=== PATIENT | male | born 1995 | race Caucasian/White ===

== ENCOUNTER 2021-08-03 16:35 | Outpatient (CLI) | payer OTHER, SELFPAY ==
--- NOTE | 2021-08-03 16:44 | ECG_ITS ---
Measurements Intervals [place] Rate: 72 P: 22 DC: 155 QRS: 14 QRSD: 89 T: 24 QT: 373 QTc: 408 Interpretive Statements SINUS RHYTHM NORMAL ECG Electronically Signed On 08-03-2021 20:07:54 [employer]DER WORKER by Matthew Kang D.O.
[2021-08-03 17:47] LABS: Basophils Absolute Auto 0.07 K/mm3 (0.00-0.10); Basophils Percent Auto 0.8 % (0.0-1.0); Eosinophils Absolute Auto 0.37 K/mm3 (0.02-0.50); Eosinophils Percent Auto 4.4 % (1.0-6.0); Hematocrit 46.2 % (40.0-54.0); Hemoglobin 16.1 g/dL (14.0-18.0); Immature Granulocyte Absolute 0.03 K/mm3 (0.00-0.00); Immature Granulocyte Percent A 0.4 % (0.0-0.0); Lymphocytes Absolute Auto 2.64 K/mm3 (1.10-4.50); Lymphocytes Percent Auto 31.7 % (18.0-42.0); Mean Corpuscular HGB Conc 34.8 g/dL (32.0-36.0); Mean Corpuscular Volume 91.8 fL (78.0-102.0); Mean Platelet Volume 9.9 fl (8.7-11.0); Monocytes Absolute Auto 0.79 K/mm3 (0.10-0.90); Monocytes Percent Auto 9.5 % (2.0-11.0); Neutrophils Absolute Auto 4.4 K/mm3 (1.7-7.2); Neutrophils Percent Auto 53.2 % (50.0-70.0); Platelet Count Result 366 K/mm3 (150-420); Red Blood Count 5.03 M/mm3 (4.70-6.10); Red Cell Distribution Width 11.9 % (11.6-14.4); White Blood Count 8.3 K/mm3 (4.8-10.8)
[2021-08-03 18:32] LABS: Alanine Aminotransferase 95 U/L (16-63); Albumin Level 4.4 g/dL (3.4-5.0); Alkaline Phosphatase 98 U/L (46-116); Anion Gap 10 mmol/L (8-16); Aspartate Amino Transferase 37 U/L (15-37); Bilirubin,Total 0.2 mg/dL (0.00-1.00); Blood Urea Nitrogen 21 mg/dL (7-18); Calcium 9.1 mg/dL (8.5-10.1); Carbon Dioxide 28 mmol/L (21-32); Chloride 101 mmol/L (98-108); Cholesterol 212 mg/dL (0-200); Estimated Glomerular Filt Rate > 60; Free T4 Free Thyroxine 0.73 ng/dL (0.76-1.46); Glucose 86 mg/dL (70-99); HDL Direct 28 mg/dL (40-60); LDL Cholesterol Calculated 140 mg/dL (<130); Magnesium 2.4 mg/dL (1.8-2.4); Osmolality Calculated 290 mOsm/kg (285-295); Potassium 3.8 mmol/L (3.5-5.1); Sodium 139 mmol/L (136-145); Thyroid Stimulating Hormone 2.46 uIU/mL (0.36-3.74); Triglycerides 221 mg/dL (0-150); Vitamin B12 742 pg/mL (193-986)
[2021-08-07 14:15] LABS: Testosterone Free 47.5 pg/mL (35.0-155.0); Testosterone Total 295 ng/dL (250-1100)
== END 2021-08-03 16:36 | disposition home or self-care (01) ==
LOC: CHSLAB 16:44
PROVIDERS: PCP Nurse Practitioner Family; Visit Provider Nurse Practitioner Family
DX: R00.2 Palpitations (principal); R53.83 Other fatigue; Z00.00 Encounter for general adult medical examination without abnormal findings
CPT/HCPCS: 36415; 80053; 80061; 82607; 83735; 84402; 84403; 84439; 84443; 85025; 93005

== ENCOUNTER 2021-08-09 08:35 | Outpatient (CLI) | payer OTHER, SELFPAY ==
--- NOTE | 2021-08-11 12:57 | WPDHOLTEREM ---
Holter/Event Monitor Holter/Event Monitor Date of procedure: 08/09/21 Holter/Event Procedure: 48 Hr Holter Monitor Indications: Palpitations Conclusion: 1. 48 hour holter monitor on 08/09/21. 2. Underlying rhythm is sinus rhythm. HR range 45-164 bpm; average HR 79 bpm. 3. There are 7 premature supraventricular complexes and 2 supraventricular couplets. No supraventricular tachycardia. 4. There are 86 premature ventricular complexes. No ventricular tachycardia. 5. No sinoatrial or atrioventricular blocks. No significant pauses greater than 2 seconds. 6. No symptoms available for correlation.
== END 2021-08-09 08:36 | disposition home or self-care (01) ==
LOC: CHSCARD 08:36
PROVIDERS: PCP Nurse Practitioner Family; Visit Provider Nurse Practitioner Family
DX: R00.2 Palpitations (principal)
CPT/HCPCS: 93225; 93226

== ENCOUNTER 2021-09-07 09:44 | Emergency (ER) | payer OTHER, SELFPAY ==
[2021-09-07] VITALS (13 sets, daily range): BP systolic 112–141; BP diastolic 63–84; PULSE 70–87; RESP 11–18; TEMP 36.9; O2SAT 96–99
--- NOTE | ~2021-09-07 | XR_ITS ---
EXAMINATION: XR chest 2V DATE: 09/07/2021 10:20 INDICATION: Left-sided chest pain TECHNIQUE: Frontal and lateral views of the chest are obtained COMPARISON: 04/22/2016 FINDINGS: The lungs are free of acute opacities. There is no pleural effusion or pneumothorax. The ca rdiomediastinal silhouette is normal. There are changes of interval plate-screw fixation of the right clavicle. IMPRESSION: 1. No acute cardiopulmonary abnormality. Reviewed, dictated and finalized at location A. [facility]
--- NOTE | 2021-09-07 09:47 | ECG_ITS ---
Measurements Intervals [place] Rate: 81 P: 28 [place]: 140 QRS: 17 QRSD: 85 T: 27 QT: 355 QTc: 413 Interpretive Statements SINUS RHYTHM WITH SINUS ARRHYTHMIA NORMAL ECG Electronically Signed On 09-07-2021 10:26:06 [employer]UG AND ALCOH[employer] COUNSELLOR by Matthew Kang D.O.
--- NOTE | 2021-09-07 10:22 | ED.CHESTPAIN ---
HPI - Chest Pain General Chief Complaint: Chest Pain Stated Complaint: chest pain, lightheadedness Time Seen by Provider: 09/07/21 10:20 Source: patient Mode of arrival: ambulatory Limitations: no limitations History of Present Illness HPI narrative: This is a 25 year old male that presents to the ER for chest pain ongoing for about a month. Reports he has episodes almost daily of sharp left sided chest pains. Sometimes they last only briefly, sometimes it lasts all day. He has been evaluated by his primary for this. Was placed on a Holter monitor without concerning findings. Reports today he had an episode of pain associated with some lightheadedness which prompted him to be seen. The pain is worse with deep breathing. Denies fever, shortness of breath, lower extremity edema, recent travel or surgery. Related Data Allergies Allergy/AdvReac Type Severity Reaction Status Date / Time cefazolin Allergy Intermediate VOMITTING Verified 08/02/21 16:24 clindamycin Allergy Intermediate Dyspnea / Verified 08/02/21 16:24 SOB Penicillins Allergy Intermediate PROJECTILE Verified 08/02/21 16:24 VOMITTING Review of Systems Review of Systems: CONSTITUTIONAL: Denies fever CARDIOVASCULAR: Reports chest pain. Denies palpitations, or edema. RESPIRATORY: Denies cough or dyspnea. 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 HEAD: Normocephalic, atraumatic. EYES: EOMI. NECK: Supple. No adenopathy or masses. No carotid bruits or JVD CHEST: Clear to auscultation. No respiratory distress. No wheezes rales or rhonchi HEART: Regular rate and rhythm. No murmur heard. Normal peripheral pulses. EXTREMITIES: Normal range of motion. No edema. SKIN: Warm, dry, no rash. NEURO: No focal deficits. Alert and oriented x3. PSYCH: Normal mood and affect Course Vital Signs Vital signs: Vital Signs Temperature 98.4 F 09/07/21 09:56 Pulse Rate 76 09/07/21 09:56 Respiratory Rate 18 09/07/21 09:56 Blood Pressure 141/73 H 09/07/21 09:56 Pulse Oximetry 99 09/07/21 09:56 Temperature 98.4 F 09/07/21 09:56 Pulse Rate 70 09/07/21 11:01 Respiratory Rate 15 09/07/21 11:01 Blood Pressure 114/72 09/07/21 11:00 Pulse Oximetry 99 09/07/21 11:01 MDM - Chest Pain MDM Narrative Medical decision making narrative: Patient presents to the emergency department for pain ongoing over the last month. Patient's blood pressure mildly elevated on arrival, this normalized without intervention. CBC and metabolic panel without concerning findings. Lipase is normal. TSH is normal. EKG without concerning ST changes and baseline inferior troponin are negative. Chest x-ray without acute cardiopulmonary abnormality. D-dimer is not elevated. Patient was updated on case findings. Instructed to follow-up with his primary care doctor. His heart score is a 1. He is stable and felt appropriate for further outpatient evaluation. He was given warnings to return to the ER Lab Data Attestation: I reviewed the patient's lab results. Result diagrams: 09/07/21 10:35 09/07/21 10:35 Labs: Lab Results 09/07/21 09/07/21 09/07/21 Range/Units 10:35 10:35 10:35 WBC 5.8 (4.5-10.0) K/mm3 RBC 4.84 (4.6-6.20) M/mm3 Hgb 15.5 (14.0-18.0) g/dL Hct 43.3 (42.0-52.0) % MCV 89.5 (80-100) fl MCH 32.0 (26-34) pg MCH
[2021-09-07 10:54] LABS: Basophils Percent Auto 0.5 % (0.2-1.2); Eosinophils Absolute Auto 0.1 K/mm3 (0-0.3); Eosinophils Percent Auto 2.1 % (0-4.4); Hematocrit 43.3 % (42.0-52.0); Hemoglobin 15.5 g/dL (14.0-18.0); Immature Granulocyte Absolute 0.01 K/mm3 (0.00-0.031); Immature Granulocyte Percent A 0.2 % (0-0.5); Lymphocytes Absolute Auto 1.69 K/mm3 (0.9-3.2); Lymphocytes Percent Auto 29.1 % (18.3-44.2); Mean Corpuscular HGB Conc 35.8 g/dl (32-36); Mean Corpuscular Volume 89.5 fl (80-100); Mean Platelet Volume 9.7 fl (7.4-10.4); Monocytes Absolute Auto 0.4 K/mm3 (0.1-0.6); Monocytes Percent Auto 7.6 % (2.6-8.5); Neutrophils Absolute Auto 3.5 K/mm3 (1.3-6.7); Neutrophils Percent Auto 60.5 % (45.5-73.1); Platelet Count Result 308 k/mm3 (150-375); Red Blood Count 4.84 M/mm3 (4.6-6.20); Red Cell Distribution Width 11.9 % (11.5-14.5); White Blood Count 5.8 K/mm3 (4.5-10.0)
[2021-09-07 11:05] LABS: Alanine Aminotransferase 49 U/L (4-50); Albumin Level 4.5 g/dL (3.5-5.1); Alkaline Phosphatase 89 U/L (38-126); Anion Gap 8 mmol/L (8-16); Aspartate Amino Transferase 38 U/L (17-59); Bilirubin,Total 0.6 mg/dL (0.2-1.3); Blood Urea Nitrogen 20 mg/dL (9-20); Calcium 9.7 mg/dL (8.4-10.2); Carbon Dioxide 26 mmol/L (22-30); Chloride 106 mmol/L (98-107); Estimated CRCL calculation 137 ml/min; Estimated Glomerular Filt Rate > 60; Glucose 105 mg/dL (65-110); Lipase 97 U/L (23-300); Potassium 4.3 mmol/L (3.4-5.0); Sodium 140 mmol/L (137-145)
[2021-09-07 11:07] LABS: INR 1.1; Prothrombin Time 13.9 Seconds (11.1-14.7)
[2021-09-07 11:08] LABS: Partial Thromboplastin Time 31.1 SECONDS (22.3-36.8)
[2021-09-07 11:21] LABS: D Dimer < 0.27 ug/mL (<0.48)
[2021-09-07 11:44] LABS: Troponin I < 0.012 ng/mL (0.000-0.034)
[2021-09-07 13:35] LABS: Troponin I < 0.012 ng/mL (0.000-0.034)
== END 2021-09-07 14:19 | disposition home or self-care (01) ==
PROVIDERS: Physician Assistant; Emergency Provider Emergency Medicine
DX: R07.9 Chest pain, unspecified (principal); E78.5 Hyperlipidemia, unspecified
CPT/HCPCS: 36415; 71046; 80053; 83690; 84443; 84484; 85025; 85380; 85610; 85730; 93005; 99284

== ENCOUNTER 2021-09-09 08:09 | Outpatient (CLI) | payer OTHER, SELFPAY ==
[2021-09-09 08:47] LABS: Cholesterol 172 mg/dL (0-200); HDL Direct 32 mg/dL (40-60); LDL Cholesterol Calculated 117 mg/dL (<130); Triglycerides 116 mg/dL (0-150)
[2021-09-13 15:41] LABS: Testosterone Free 81.6 pg/mL (35.0-155.0); Testosterone Total 402 ng/dL (250-1100)
== END 2021-09-09 08:10 | disposition home or self-care (01) ==
LOC: CHSLAB 08:11
PROVIDERS: PCP Nurse Practitioner Family; Visit Provider Nurse Practitioner Family
DX: Z01.83 Encounter for blood typing (principal); E78.2 Mixed hyperlipidemia; R79.89 Other specified abnormal findings of blood chemistry
CPT/HCPCS: 36415; 80061; 84402; 84403; 86850; 86900; 86901

== ENCOUNTER 2021-10-21 14:02 | Emergency (ER) | payer OTHER, SELFPAY ==
[2021-10-21 14:10] VITALS: BP 99/63; PULSE 77; RESP 18; TEMP 36.4; O2SAT 100
--- NOTE | 2021-10-21 14:10 | ED.WOUNDLAC ---
HPI - Wound/Laceration General Chief Complaint: Wound/Laceration Stated Complaint: FINGERNAIL PULLED BACK Time Seen by Provider: 10/21/21 14:10 Source: patient, RN notes reviewed and old records reviewed Mode of arrival: ambulatory Limitations: no limitations History of Present Illness HPI narrative: 25 year old male presents to express care with complaints of exercising at the [facility] today and was doing push ups on a kettle ball and caught his 5th left finger nail on mat about 45 minutes ago. He has laceration noted under the end of the finger nail of his left 5th finger with some bloody drainage noted from site. Patient reports that his tetanus shot is up to date. Patient states that he has some pain to site rates his discomfort as 4/10. No damage noted to nail bed of his left 5th finger Onset (ago): minute(s) (45 minutes ago) Related Data Home Medications Medication Instructions Recorded Confirmed No Home Medications 09/26/21 Allergies Allergy/AdvReac Type Severity Reaction Status Date / Time cefazolin Allergy Intermediate VOMITTING Verified 09/26/21 10:44 clindamycin Allergy Intermediate Dyspnea / Verified 09/26/21 10:44 SOB Penicillins Allergy Intermediate PROJECTILE Verified 09/26/21 10:44 VOMITTING Review of Systems Review of Systems: CONSTITUTIONAL: Denies fever, chills, or sweats. EYES: Denies visual changes, redness, or discharge. ENT: Denies rhinorrhea, congestion, sore throat, or otalgia. CARDIOVASCULAR: Denies chest pain, palpitations, or edema. RESPIRATORY: Denies cough or dyspnea. GASTROINTESTINAL: Denies abdominal pain, nausea, vomiting, or diarrhea. GENITOURINARY: Denies dysuria or hematuria. SKIN: Denies rash or itching positive for tear of skin under nail of left 5th finger MUSCULOSKELETAL: Denies back pain, joint pain, or myalgia. NEUROLOGIC: Denies headache, numbness, or weakness. PSYCHIATRIC: Denies anxiety or depression. 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 There is no relevant family history pertinent to the presenting complaint Exam Narrative: GENERAL: Well-appearing, well-nourished, and in no acute distress. HEAD: Normocephalic, atraumatic. EYES: PERRLA and EOMI. ENT: Nares clear, no rhinorrhea or epistaxis. Mucous membranes moist.TM's normal with good light reflex, throat pink with no abnormality noted. NECK: Supple.no lymphadenopathy CHEST: Clear to auscultation. No respiratory distress. HEART: Regular rate and rhythm. No murmur heard. Normal peripheral pulses. ABDOMEN: Soft, nontender, nondistended, normal active bowel sounds. EXTREMITIES: Normal range of motion. No edema. SKIN: Warm, dry, no rash. .3cm laceration noted under tip of nail of left 5th finger with nail bed intact with no injury noted, bleeding present from laceration site. Patient has adequate sensation, color and mobility of left 5th finger with finger warm and pink, strong left radial pulse. Wound cleansed and irrigated,small strip of Surgicel placed under tip of 5th left nail and gauze and coban dressing applied to 5th left finger. Care instructions reviewed with patient with understanding verbalized. NEURO: No focal deficits. Alert and oriented x3. Course Course Level of Care: Express Care Visit Vital Signs Vital signs: Vital Signs Temperature 36.4 C 10/21/21 14
== END 2021-10-21 15:13 | disposition home or self-care (01) ==
PROVIDERS: Emergency Provider Registered Nurse
DX: S61.217A Laceration without foreign body of left little finger without damage to nail, initial encounter (principal); X58.XXXA Exposure to other specified factors, initial encounter; E78.5 Hyperlipidemia, unspecified
CPT/HCPCS: 99212; G0463

== ENCOUNTER 2021-10-27 01:38 | Emergency (ER) | payer OTHER, SELFPAY ==
--- NOTE | 2021-10-27 01:46 | ED.WOUNDLAC ---
HPI - Wound/Laceration General Chief Complaint: Extremity Problem,Nontraumatic Stated Complaint: Left Pinkey Injury Time Seen by Provider: 10/27/21 01:46 Source: patient History of Present Illness HPI narrative: 26-year-old male presents to the ER with -- he sustained left little finger subungual laceration when he was exercising. The wound was bleeding profusely. He went to an urgent care On 10/21/2021 where they placed a Surgi gel to stop his bleeding. He presents today with pain and redness of his little finger distal phalanx. No discharge. -- He had an extensive tattooing of his right forearm on 10/24/2021. He presents today with redness, tenderness and minimal blistering over certain areas of his right forearm. No fever or chills. No axillary lymphadenopathy. Onset (ago): day(s) ( 6 days) Location: other ( left little finger and right forearm) Extremity Location: Left: hand and Right: forearm Place: home Patient tetanus UTD: No Context: accidental Associated symptoms: none Related Data Allergies Allergy/AdvReac Type Severity Reaction Status Date / Time cefazolin Allergy Intermediate VOMITTING Verified 10/27/21 01:50 clindamycin Allergy Intermediate Dyspnea / Verified 10/27/21 01:50 SOB Penicillins Allergy Intermediate PROJECTILE Verified 10/27/21 01:50 VOMITTING Review of Systems Review of Systems: All systems reviewed & are unremarkable except as noted in HPI and below Constitutional: Constitutional: Reports as per HPI and Reports no additional constitutional complaints Eyes: Eyes: Reports as per HPI and Reports no additional eye complaints ENT: Reports system reviewed and no additional complaints, except as documented Cardiovascular: Cardiovascular: Reports as per HPI and Reports no additional cardiovascular complaints Respiratory: Respiratory: Reports as per HPI and Reports no additional respiratory complaints Gastrointestinal: Gastrointestinal: Reports as per HPI and Reports no additional gastrointestinal complaints Genitourinary: Genitourinary: Reports no additional male genitourinary complaints and Reports as per HPI Musculoskeletal: Musculoskeletal: Reports no additional musculoskeletal complaints and Reports as per HPI Integumentary/Breasts: Comments: redness and tenderness over areas of tattooing on his right forearm. healed laceration under the left little finger nail with surrounding redness and tenderness Neurologic: Reports system reviewed and no additional complaints, except as documented and Reports as per HPI Psychiatric: Psychiatric: Reports no additional psychiatric complaints and Reports as per HPI Endocrine: Endocrine: Reports no additional endocrine complaints and Reports as per HPI Hematologic/Lymphatic: Hematologic/Lymphatic: Reports no additional hematologic/lymphatic complaints and Reports as per HPI Allergic/Immunologic: Allergic/Immunologic: Reports no additional allergic/immunologic complaints and Reports as per HPI [facility] Past Medical History Medical History History of hyperlipidemia Thumb injury Family History Family History Grandparent Diabetes mellitus Mother Hypercholesteremia Social History Social History Smoking status: Never smoker Alcohol intake: never Substance use: never 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
[2021-10-27 01:50] VITALS: BP 140/65; PULSE 81; RESP 81; TEMP 36.4; O2SAT 99
[2021-10-27] MEDS: TETANUS,DIPHTHERIA,AC PERTUSSIS ADULT 0.5 ML (ADACEL) IM (02:22)
[2021-10-27 02:49] VITALS: BP 112/73; PULSE 72; RESP 19; TEMP 36.8; O2SAT 97
== END 2021-10-27 02:51 | disposition home or self-care (01) ==
PROVIDERS: Emergency Provider Internal Medicine Critical Care Medicine; PCP Nurse Practitioner Family
DX: L03.012 Cellulitis of left finger (principal)
CPT/HCPCS: 90715; 96372; 99283; A9270

== ENCOUNTER 2021-12-02 11:19 | Outpatient (CLI) | payer OTHER, SELFPAY ==
--- NOTE | ~2021-12-02 | XR_ITS ---
XR chest 2V DATE: 12/02/2021 11:49 INDICATION: Shortness of breath. TECHNIQUE: PA and lateral views COMPARISON: September 07, 2021 2 view chest FINDINGS: Normal heart size. No hilar or mediastinal enlargement. No pulmonary infiltrate or consolid ation, pleural effusion or pulmonary vascular congestion or pneumothorax. Plates and screws along the right clavicle are again noted. IMPRESSION: No active cardiopulmonary disease Reviewed, dictated and finalized at location B.
== END 2021-12-02 11:20 | disposition home or self-care (01) ==
LOC: CHSLAB 11:24
PROVIDERS: PCP Nurse Practitioner Family; Visit Provider Nurse Practitioner Family
DX: R06.02 Shortness of breath (principal); K52.9 Noninfective gastroenteritis and colitis, unspecified; R63.4 Abnormal weight loss
CPT/HCPCS: 36415; 71046; 82785; 86003

== ENCOUNTER 2021-12-19 10:01 | Emergency (ER) | payer OTHER, SELFPAY ==
[2021-12-19 10:14] VITALS: BP 104/76; PULSE 90; RESP 18; TEMP 36.2; O2SAT 100
[2021-12-19] MEDS: ONDANSETRON INJ 4 MG/2 ML VIAL IV PUSH (11:09)
[2021-12-19] MEDS: SODIUM CHLORIDE 0.9% IV 1,000 ML 999 ML IV CONT (11:09)
[2021-12-19 11:13] LABS: Basophils Percent Auto 0.2 % (0.2-1.2); Eosinophils Percent Auto 0.1 % (0-4.4); Hematocrit 43.4 % (42.0-52.0); Hemoglobin 14.4 g/dL (14.0-18.0); Immature Granulocyte Absolute 0.03 K/mm3 (0.00-0.031); Immature Granulocyte Percent A 0.3 % (0-0.5); Lymphocytes Absolute Auto 1.32 K/mm3 (0.9-3.2); Lymphocytes Percent Auto 12.8 % (18.3-44.2); Mean Corpuscular HGB Conc 33.2 g/dl (32-36); Mean Corpuscular Volume 93.5 fl (80-100); Mean Platelet Volume 9.1 fl (7.4-10.4); Monocytes Absolute Auto 0.4 K/mm3 (0.1-0.6); Monocytes Percent Auto 3.8 % (2.6-8.5); Neutrophils Absolute Auto 8.5 K/mm3 (1.3-6.7); Neutrophils Percent Auto 82.8 % (45.5-73.1); Platelet Count Result 475 k/mm3 (150-375); Red Blood Count 4.64 M/mm3 (4.6-6.20); Red Cell Distribution Width 12.8 % (11.5-14.5); White Blood Count 10.3 K/mm3 (4.5-10.0)
[2021-12-19 11:24] LABS: Alanine Aminotransferase 40 U/L (6-50); Albumin Level 4.7 g/dL (3.5-5.1); Alkaline Phosphatase 89 U/L (38-126); Anion Gap 6 mmol/L (8-16); Aspartate Amino Transferase 32 U/L (17-59); Bilirubin,Total 0.4 mg/dL (0.2-1.3); Blood Urea Nitrogen 15 mg/dL (9-20); Calcium 9.3 mg/dL (8.4-10.2); Carbon Dioxide 32 mmol/L (22-30); Chloride 106 mmol/L (98-107); Estimated CRCL calculation 137 ml/min; Estimated Glomerular Filt Rate > 60; Glucose 104 mg/dL (65-110); Lipase 57 U/L (23-300); Potassium 4.3 mmol/L (3.4-5.0); Sodium 144 mmol/L (137-145)
[2021-12-19 12:17] VITALS: BP 123/78; PULSE 77; RESP 16; O2SAT 98
--- NOTE | 2021-12-19 18:55 | ED.NAVMDI ---
HPI - Nausea/Vomiting/Diarrhea General Chief complaint: Nausea/Vomiting/Diarrhea Stated complaint: vomiting Time Seen by Provider: 12/19/21 10:47 History of Present Illness HPI Narrative: 26-year-old male here for evaluation of nausea and vomiting for the past day. Patient states that he has had about 7 episodes of vomiting nonbloody, nonbilious emesis today and some mild epigastric discomfort with dry heaving. He is not unable to tolerate any food or fluids. denies diarrhea, constipation fevers. No new foods or sick contacts. Patient states he was drinking lots of alcohol yesterday, does have a history of previous similar symptoms after drinking alcohol. Related Data Allergies Allergy/AdvReac Type Severity Reaction Status Date / Time clindamycin Allergy Intermediate Dyspnea / Verified 11/28/21 14:05 SOB cefazolin AdvReac Intermediate VOMITTING Verified 12/19/21 10:54 Penicillins AdvReac Intermediate PROJECTILE Verified 12/19/21 10:54 VOMITTING Review of Systems Review of Systems: Gen.: Denies fevers or chills Eyes: Denies eye pain or visual change ENT: Denies congestion Respiratory: Denies shortness of breath or cough CV: Denies chest pain or palpitations GI: Reports nausea, abdominal pain, emesis. 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 Head normocephalic and atraumatic. EYES: PERRLA/EOMI, conjunctivae clear NOSE: No nasal drainage EARS: External ear normal in appearance THROAT: Oropharynx is clear. Mucous membranes are moist. NECK: Supple. No adenopathy, no masses. RESPIRATORY: Airway patent, respirations nonlabored. Clear to auscultation bilaterally, no rales, rhonchi, wheezing. CARDIOVASCULAR: Regular rate and rhythm without murmurs, rubs, or gallops. ABDOMINAL: Normoactive bowel sounds. Soft, nontender, nondistended. No rebound tenderness or guarding. MUSCULOSKELETAL: Extremities are warm and well-perfused. Moves all extremities well. No edema. NEURO: Normal speech. No focal neurologic deficits. SKIN:: Skin is warm and dry. No rashes. PSYCHIATRIC: Normal affect/mood. Course Vital Signs Vital signs: Vital Signs Temperature 97.2 F L 12/19/21 10:14 Pulse Rate 90 12/19/21 10:14 Respiratory Rate 18 12/19/21 10:14 Blood Pressure 104/76 12/19/21 10:14 Pulse Oximetry 100 12/19/21 10:14 Oxygen Delivery Room Air 12/19/21 10:14 Temperature 97.2 F L 12/19/21 10:14 Pulse Rate 77 12/19/21 12:17 Respiratory Rate 16 12/19/21 12:17 Blood Pressure 123/78 12/19/21 12:17 Pulse Oximetry 98 12/19/21 12:17 Oxygen Delivery Room Air 12/19/21 10:14 MDM - Nausea/Vomiting/Diarrhea MDM Narrative Medical decision making narrative: 26-year-old male here for evaluation of nausea vomiting and abdominal pain for the past day after drinking alcohol. Vital signs normal, abdomen soft and nontender to palpation. patient has very slight elevation in the white count of 10.3, labs including lipase otherwise unremarkable. Patient's symptoms improved entirely after liter of IV fluids and 4 of Zofran, and he was able to tolerate his p.o.
== END 2021-12-19 12:18 | disposition home or self-care (01) ==
PROVIDERS: Emergency Provider Emergency Medicine; PCP Nurse Practitioner Family
DX: K52.9 Noninfective gastroenteritis and colitis, unspecified (principal); E78.5 Hyperlipidemia, unspecified
CPT/HCPCS: 36415; 80053; 83690; 85025; 96361; 96374; 99284; J2405; J7030

== ENCOUNTER 2022-03-01 10:17 | Outpatient (NON) | payer OTHER, SELFPAY | END 2022-03-01 10:18 | disposition home or self-care (01) | LOC: CHSLAB 10:18 | PROVIDERS: Visit Provider Nurse Practitioner Family | DX: Z11.3 Encounter for screening for infections with a predominantly sexual mode of transmission (principal) | CPT/HCPCS: 87491; 87591; 87661 ==

== ENCOUNTER 2022-06-13 15:08 | Emergency (ER) | payer OTHER, SELFPAY ==
[2022-06-13 15:10] VITALS: BP 122/86; PULSE 98; RESP 16; TEMP 36.9; O2SAT 96
--- NOTE | 2022-06-13 15:21 | ED.URI ---
HPI - URI/Sore Throat General Chief Complaint: Upper Respiratory Infection Stated Complaint: ear ache and sore throat Time Seen by Provider: 06/13/22 15:15 History of Present Illness HPI Narrative: Pt presents with left ear pain and a sore throat and possible fever for a couple of days. Pt tried to go to [facility] but they wanted to make an appointment for later in the day. Related Data Allergies Allergy/AdvReac Type Severity Reaction Status Date / Time clindamycin Allergy Intermediate Dyspnea / Verified 06/13/22 15:18 SOB cefazolin AdvReac Intermediate VOMITTING Verified 06/13/22 15:18 Penicillins AdvReac Intermediate PROJECTILE Verified 06/13/22 15:18 VOMITTING Review of Systems Review of Systems: All systems reviewed & are unremarkable except as noted in HPI and below PMFSH Past Medical History Medical History Encounter to establish care Eustachian tube dysfunction History of hyperlipidemia Thumb injury Family History Family History Grandparent Diabetes mellitus Mother Hypercholesteremia Social History Social History Smoking status: Never smoker Alcohol intake: never Substance use: never 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 Exam Const: General: healthy appearing Nutritional Appearance: well nourished Orientation/consciousness: patient oriented x3 Limitations: no limitations HENMT: Head: normal to inspection Ears: TM abnormal (l tm bulging with mild erythema) Mouth: Yes moist mucous membranes Throat: uvula midline (right tonsil erythematous and swollen) Eyes: EOM: EOMs intact bilaterally Neck: Neck: normal visual inspection, no lymphadenopathy and no meningeal signs Chest: Chest palpation & inspection: normal inspection of the chest Resp: Effort & Inspection: normal respiratory effort Auscultation: clear to auscultation bilaterally Cardio: Rate: regular rate Rhythm: regular rhythm GI: GI Palp: Yes Soft to palpation Auscultation: normal bowel sounds Skin: General skin exam: normal color Rashes: no rashes Neuro: General: patient oriented x3 Cranial nerves: Yes Nystagmus not present Speech: normal speech Extrem: General: normal to inspection and no clubbing, cyanosis or edema Psych: Mental Status: mental status grossly normal Affect: normal affect Attitude: cooperative Course Vital Signs Vital signs: Vital Signs Temperature 98.5 F 06/13/22 15:10 Pulse Rate 98 06/13/22 15:10 Respiratory Rate 16 06/13/22 15:10 Blood Pressure 122/86 06/13/22 15:10 Pulse Oximetry 96 06/13/22 15:10 Oxygen Delivery Room Air 06/13/22 15:10 Temperature 98.5 F 06/13/22 15:10 Pulse Rate 98 06/13/22 15:10 Respiratory Rate 16 06/13/22 15:10 Blood Pressure 122/86 06/13/22 15:10 Pulse Oximetry 96 06/13/22 15:10 Oxygen Delivery Room Air 06/13/22 15:10 Discharge Plan Discharge Clinical Impression: Pharyngitis Patient Disposition: Home, Self-Care Condition: Stable Instructions: Antibiotic Form, Pharyngitis (ED) Prescriptions: New levofloxacin 750 mg tablet 750 mg PO DAILY Qty: 10 0RF Follow-up/Referrals: Georgie Miller NP [Primary Care Provider] -
== END 2022-06-13 15:33 | disposition home or self-care (01) ==
LOC: CHSED 15:28
PROVIDERS: Emergency Provider Emergency Medicine; PCP Nurse Practitioner Family
DX: J02.9 Acute pharyngitis, unspecified (principal)
CPT/HCPCS: 99283

== ENCOUNTER 2022-06-15 08:26 | Emergency (ER) | payer OTHER, SELFPAY ==
[2022-06-15] VITALS (28 sets, daily range): BP systolic 109–143; BP diastolic 65–89; PULSE 72–108; RESP 16–21; TEMP 36.6; O2SAT 94–100
--- NOTE | ~2022-06-15 | XR_ITS ---
XR chest 1V portable DATE: 06/15/2022 09:27 INDICATION: Midline chest pain TECHNIQUE: 06/11/2022 portable upright AP chest at 0934 hours COMPARISON: 12/02/2021 PA and lateral chest FINDINGS: Plates and screws of right clavicle. Normal heart size. No hilar or mediastinal enlargement. No pulmonary infiltrate or consolidation, ple ural effusion or pulmonary vascular congestion or pneumothorax is detected. IMPRESSION: No active cardiopulmonary disease Reviewed, dictated and finalized at location [facility]. [facility]
--- NOTE | 2022-06-15 08:34 | ECG_ITS ---
Measurements Intervals [place] Rate: 75 P: 31 TN: 142 QRS: 64 QRSD: 84 T: 54 QT: 366 QTc: 410 Interpretive Statements SINUS RHYTHM ST ELEVATION IN INFERIOR LEADS- PROBABLY EARLY REPOLARIZATION BASELINE WANDER- I, II, III, AVF, V1, V4-V6 BORDERLINE ECG COMPARED TO ECG 09/07/2021 09:53:21 NO SIGNIFICANT CHANGES Electronically Signed On 06-15-2022 14:38:[address] by Matthew Kang D.O.
--- NOTE | 2022-06-15 08:39 | ED.GENADULT ---
HPI - General Adult General Chief complaint: Chest Pain Stated complaint: chest pain Time Seen by Provider: 06/15/22 08:38 History of Present Illness HPI narrative: Raulito is a 26M with a PM of chronic diarrhea, low testosterone and fatigue that presented to the ED with chest pain. He had Non-radiating central chest pain and pressure that woke him up and lasted for 1 hour then went away. He took omeprazole which did not help it at first but then he took a very hot shower. He was a little lightheaded in the shower but it resolved. There was no N/V or syncope. He currently denies any CP, lightheadedness or nausea. Related Data Allergies Allergy/AdvReac Type Severity Reaction Status Date / Time clindamycin Allergy Intermediate Dyspnea / Verified 06/15/22 09:26 SOB cefazolin AdvReac Intermediate VOMITTING Verified 06/15/22 09:26 Penicillins AdvReac Intermediate PROJECTILE Verified 06/15/22 09:26 VOMITTING Review of Systems Constitutional: Constitutional: Reports no additional constitutional complaints PMFSH Past Medical History Medical History Encounter to establish care Eustachian tube dysfunction History of hyperlipidemia Thumb injury Family History Family History Grandparent Diabetes mellitus Mother Hypercholesteremia Social History Social History Smoking status: Never smoker Alcohol intake: never Substance use: never 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 Exam Const: General: healthy appearing and no acute distress Nutritional Appearance: well nourished Orientation/consciousness: patient oriented x3 HENMT: Head: normal to inspection Eyes: Conjunctivae: conjunctivae normal Pupils: Equal, round and reactive pupils present Neck: Neck: normal visual inspection Chest: Chest palpation & inspection: normal inspection of the chest Resp: Effort & Inspection: normal respiratory effort and not labored Auscultation: clear to auscultation bilaterally Cardio: Rate: regular rate Rhythm: regular rhythm GI: Inspection: non-distended Back/Spine/Pelvis: Back: no CVA tenderness Skin: General skin exam: normal color Rashes: no rashes Neuro: General: patient oriented x3 and moves all extremities Cranial nerves: Yes Nystagmus not present Extrem: General: normal to inspection Psych: Mental Status: mental status grossly normal Course Course Emergency Course: Ordered labs, EKG and CXR. EKG showed NSR with a rate of 75, wandering baseline in II, No ST elevation or ectopy Labs showed very elevated troponin. Ordered aspirin and lovenox and redrew troponin 0945: On the monitor he was found to have a 13 beat complex of wide complex tachycardia Repeat EKG at 0957 showed NSR with a rate of 71 with no ectopy. Repeat troponin was even higher at [address] [facility] at 1005 for transfer for cardiology 1020: I spoke with Dr. Butler of cardiology at [facility] that accepted the transfer. 1112: Dr. Matthews, the hospitalist, accepted the transfer as well He was transferred to [facility] for cardiology consult at 1220 Vital Signs Vital signs: Vital Signs Temperature 97.8 F 06/15/22 08:31 Pulse Rate 81 06/15/22 08:31 Respiratory Rate 16 06/15/22 08:31 Blood Pressure 124/89 06/15/22 08:31 Pulse Oximetry 99 06/15/22 08:31 Oxygen Delivery Room Air 06/15/22 08:31 Temperature 97.8 F 06/15/22 08:31 Pulse Rate 87 06/15/22 11:02 Respiratory Rate 17 06/15/22 11:02 Blood Pressure 116/67 06/15/22 11:02 Pulse Oximetry 98 06/15/22 11:02 Oxygen Delivery Room Air 06/15/22 08:51 Medical Decision Making Vital Signs Vital Signs: Vital Signs Temperature 97.8 F 06/15/22 08:31 Pulse Rate 81 06/15/22 08:31 Respiratory Rate 16 06/15/22 08:31
[2022-06-15 09:00] LABS: Basophils Absolute Auto 0.03 K/mm3 (0.00-0.10); Basophils Percent Auto 0.5 % (0.0-1.0); Eosinophils Absolute Auto 0.12 K/mm3 (0.02-0.50); Eosinophils Percent Auto 2.1 % (1.0-6.0); Hematocrit 40.3 % (40.0-54.0); Hemoglobin 14.1 g/dL (14.0-18.0); Immature Granulocyte Absolute 0.02 K/mm3 (0.00-0.00); Immature Granulocyte Percent A 0.3 % (0.0-0.0); Lymphocytes Absolute Auto 1.74 K/mm3 (1.10-4.50); Lymphocytes Percent Auto 29.8 % (18.0-42.0); Mean Corpuscular Hemoglobin 32.3 pg (27.0-31.0); Mean Corpuscular Volume 92.4 fL (78.0-102.0); Mean Platelet Volume 9.1 fl (8.7-11.0); Monocytes Absolute Auto 0.58 K/mm3 (0.10-0.90); Monocytes Percent Auto 9.9 % (2.0-11.0); Neutrophils Absolute Auto 3.3 K/mm3 (1.7-7.2); Neutrophils Percent Auto 57.4 % (50.0-70.0); Platelet Count Result 301 K/mm3 (150-420); Red Blood Count 4.36 M/mm3 (4.70-6.10); Red Cell Distribution Width 12.3 % (11.6-14.4); White Blood Count 5.8 K/mm3 (4.8-10.8)
[2022-06-15 09:11] LABS: INR 1.1; Prothrombin Time 12.1 Seconds (9.50-12.10)
[2022-06-15 09:21] LABS: Alanine Aminotransferase 63 U/L (16-63); Albumin Level 3.6 g/dL (3.4-5.0); Alkaline Phosphatase 84 U/L (46-116); Anion Gap 8 mmol/L (8-16); Aspartate Amino Transferase 39 U/L (15-37); Bilirubin,Total 0.5 mg/dL (0.00-1.00); Blood Urea Nitrogen 16 mg/dL (7-18); Calcium 9.2 mg/dL (8.5-10.1); Carbon Dioxide 29 mmol/L (21-32); Chloride 105 mmol/L (98-108); Estimated CRCL calculation 109 ml/min; Estimated Glomerular Filt Rate > 60; Glucose 99 mg/dL (70-99); Lipase 150 U/L (73-393); NT Pro B Type Natriuretic Pept 291 pg/mL (0-125); Osmolality Calculated 295 mOsm/kg (285-295); Potassium 4.3 mmol/L (3.5-5.1); Sodium 142 mmol/L (136-145); Total Protein 7.9 g/dL (6.4-8.2)
--- NOTE | 2022-06-15 09:31 | ECG_ITS ---
Measurements Intervals [place] Rate: 71 P: 38 [place]: 138 QRS: 66 QRSD: 74 T: 59 QT: 363 QTc: 396 Interpretive Statements SINUS RHYTHM WITH SINUS ARRHYTHMIA ST ELEVATION IN INFERIOR LEADS- PROBABY EARLY REPOLARIZATION BORDERLINE ECG COMPARED TO ECG 06/15/2022 08:39:40 SINUS ARRHYTHMIA NOW PRESENT Electronically Signed On 06-15-2022 14:39:15 DIRECTOR OF CURRICULUM by Matthew Kang D.O.
[2022-06-15] MEDS: ENOXAPARIN 100 MG/ML SYRINGE 85 MG SUB-Q (09:42)
[2022-06-15] MEDS: ASPIRIN 81 MG CHEWABLE TABLET 324 MG PO (09:44)
[2022-06-15 09:47] LABS: Amphetamine Screen Urine Negative (Negative); Barbiturate Screen Urine Negative (Negative); Benzodiazepines Screen Urine Negative (Negative); Cannabinoid Screen Urine Negative (Negative); Cocaine Screen Urine Negative (Negative); Methadone Screen Urine Negative (Negative); Opiate Screen Urine Negative (Negative); Phencyclidine Screen Urine Negative (Negative)
--- NOTE | 2022-06-15 10:22 | PC.NURSE ---
1020 Dr [place] talking with cardiology at [facility]
== END 2022-06-15 12:20 | disposition short-term general hospital (02) ==
PROVIDERS: Emergency Provider Family Medicine; PCP Nurse Practitioner Family
DX: R79.9 Abnormal finding of blood chemistry, unspecified (principal)
CPT/HCPCS: 36415; 71045; 80053; 80307; 83690; 83880; 84484; 85025; 85610; 93005; 96372; 99285; A9270; J1650

== ENCOUNTER 2022-07-11 10:21 | Outpatient (CLI) | payer OTHER, SELFPAY ==
[2022-07-11 11:32] LABS: HIV 1 P24 AG Negative (Negative); HIV 1/2 AB Negative (Negative)
[2022-07-14 17:07] LABS: RPR Screen Non-Reactive (Non-Reactive)
[2022-07-14 20:25] LABS: HSV 1 IgM Screen Negative (Negative); HSV 2 IgM Screen Negative (Negative)
[2022-07-17 06:45] LABS: Hepatitis C Signal to Cutoff 0.02 ratio (<1.00); Hepatitis C Virus Antibody Nonreactive (Nonreactive)
== END 2022-07-11 10:22 | disposition home or self-care (01) ==
LOC: CHSLAB 10:23
PROVIDERS: PCP Nurse Practitioner Family; Visit Provider Nurse Practitioner Family
DX: Z11.3 Encounter for screening for infections with a predominantly sexual mode of transmission (principal)
CPT/HCPCS: 36415; 86592; 86695; 86696; 86703; 87491; 87591; 87661